=== PATIENT | female | born 1985 | race Caucasian/White ===

== ENCOUNTER 2019-06-17 01:30 | Emergency (ER) | payer SELFPAY ==
[~2019-06-17] VITALS: Ht 154.9 cm; Wt 61.2 kg
--- NOTE | 2019-06-17 01:50 | NUR ---
Patient ambulated with stable gait. A/Ox4. Speech is clear, speaks in complete sentences. No neuro deficits. Patient came for a sustained dog bite/laceration underneath right eye. Patient stated she is dog sitting for her neighbor. Patient accompanied by boyfriend.
[2019-06-17] MEDS ORDERED: NEOMY/BACITRA/POLYMYXIN B OINT UD PACKET TP ONE ×2 (01:55→02:00)
[2019-06-17] MEDS ORDERED: TDAP DIPH,PERTUSS,TET VAC/PF 0.5 ML DISP.SYRIN IM ONE ×2 (01:55→02:00)
--- NOTE | 2019-06-17 02:11 | NUR ---
Patient discharged to home in stable conditon. Written and verbal after care instructions given. Patient verbalizes understanding of instructions. Patient ambulated with stable gait.
[2019-06-17 02:17] VITALS: BP 138/92
== END 2019-06-17 02:18 | disposition home or self-care (01) ==
LOC: ER 01:36
DX: S01.81XA Laceration without foreign body of other part of head, initial encounter (principal); S01.85XA Open bite of other part of head, initial encounter; W54.0XXA Bitten by dog, initial encounter; Y93.89 Activity, other specified; Y92.89 Other specified places as the place of occurrence of the external cause; Y99.8 Other external cause status
CPT/HCPCS: 90715; A4663